=== PATIENT | female | born 1945 | race Two or more races ===

== ENCOUNTER 2025-04-02 16:50 | Emergency (ER) | payer OTHER ==
[~2025-04-02] VITALS: Ht 160 cm; Wt 68.0 kg
[2025-04-02] MEDS ORDERED: SYNTHROID50 MCG PO (16:51)
[2025-04-02] MEDS ORDERED: ST. JOSEPH ASPI81 M2 PO (16:51)
[2025-04-02] MEDS ORDERED: ALENDRONATE SOD70 MG PO (16:52)
[2025-04-02] MEDS ORDERED: NORVASC2.5 MG PO (16:52)
[2025-04-02] MEDS ORDERED: METFORMIN HCL500 M4 PO (16:52)
[2025-04-02 16:54] VITALS: BP 120/77; O2SAT 98
[2025-04-02] MEDS ORDERED: 0.9 % SODIUM CHLORIDE 1,000 ML IV ONE (17:15)
[2025-04-02] MEDS ORDERED: ONDANSETRON HCL 2 MG/ML VIAL IV ONE (17:15)
[2025-04-02] MEDS ORDERED: FAMOtidine 10 MG/ML (4ML VIAL) IV ONE (17:15)
[2025-04-02 18:20] LABS: BASO % 0.4 % (0.1-1.2); EOS # 0.01 (0.04-0.54); EOS % 0.1 % (0.7-7.0); LYMPH # 0.58 (1.18-3.74); LYMPH % 5.7 % (19.3-53.1); MEAN PLATELET VOLUME 9.00 fl (9.4-12.4); MONO # 1.06 (0.24-0.82); MONO % 10.4 % (4.7-12.5); NEUT # 8.44 (1.56-6.13); NEUT % 82.9 % (34.0-71.1); RED CELL DISTRIBUTION WIDTH 14.0 % (11.6-14.4)
[2025-04-02 18:41] LABS: INR 1.05
[2025-04-02 18:49] LABS: ALT/SGPT 21.0 U/L (12-78); AST/SGOT 25.0 U/L (15-37); BILIRUBIN TOTAL 0.58 mg/dL (0.3-1.2); BUN CREA RATIO 12.0 (7.0-25.0); CREATININE SERUM 0.99 mg/dL (0.55-1.02); GFR 54.39; GLOBULINA 3.7 G/DL (2.4-3.5); GLUCOSE FASTING 111.0 mg/dL (65-100); OSMOLALITY SERUM 272.0 MOSM/KG (275-295)
[2025-04-02 18:53] LABS: COVID-19 AG POSITIVE (NEGATIVE)
[2025-04-02 19:48] LABS: URINE APPEARANCE Clear; URINE BILIRRUBIN Negative (NEGATIVE); URINE BLOOD Negative; URINE COLOR Yellow; URINE GLUCOSE Negative (NEGATIVE); URINE KETONE Trace (NEGATIVE); URINE LEUKOCYTE Negative; URINE NITRATE Negative; URINE PROTEIN Trace (NEGATIVE); URINE UROBILINOGEN 1.0 E.U./dl
[2025-04-02 19:52] LABS: URINE BACTERIA 12.0 uL (0.0-1933); URINE RBC 65.4 uL (0.0-20.8); URINE WBC 3.2 uL (0.0-23.2)
[2025-04-02 20:17] LABS: URINE CAST 0.00 uL (0.0-1.40); URINE EPITHELIAL CELLS 0.9 uL (0.0-38.8)
[2025-04-02] MEDS ORDERED: BENZONATATE200 M1 PO (20:58)
[2025-04-02] MEDS ORDERED: PEPCID AC20 MG PO (20:58)
[2025-04-02] MEDS ORDERED: ZOFRAN8 MG PO (20:58)
== END 2025-04-02 21:12 | disposition home or self-care (01) ==
LOC: ER 16:50
PROVIDERS: General Practice
DX: U07.1 COVID-19 (principal); R50.9 Fever, unspecified; R11.10 Vomiting, unspecified; I10 Essential (primary) hypertension; E03.8 Other specified hypothyroidism; E11.9 Type 2 diabetes mellitus without complications; Z79.84 Long term (current) use of oral hypoglycemic drugs
CPT/HCPCS: 36415; 71045; 96365; 96366; 99283; J2405; J3490; J7030